=== PATIENT | female | born 1985 | race Caucasian/White ===

== ENCOUNTER 2021-07-04 20:28 | Emergency (ER) | payer OTHER, MEDICAID, SELFPAY ==
[2021-07-04 20:36] VITALS: BP 160/97; PULSE 108; RESP 16; TEMP 37.1; O2SAT 97; BMI 37.2
--- NOTE | 2021-07-04 21:05 | DI.RAD.S_ITS ---
PROCEDURE: XR CHEST 1V INDICATIONS: chest pain TECHNIQUE: One view of the chest was acquired. COMPARISON: None. FINDINGS: Surgical changes and devices: None. Lungs and pleura: Lungs are clear. No pneumothorax. Trace right-sided pleural fluid collection. Mediastinum: Mediastinal contours appear normal. Heart size is normal. Bones and chest wall: No suspicious bony lesions. Overlying soft tissues appear unremarkable. IMPRESSION: Trace right-sided pleural effusion. Dictated by: Christi Sams MD, PhD on 07/04/2021 at 21:49 Approved by: Christi Sams MD, PhD on 07/04/2021 at 21:50
[2021-07-04 21:19] LABS: Add Manual Diff / Slide Review NO; Basophils Absolute Auto 100 /uL (0-100); Basophils Percent Auto 1.1 % (0-2); Eosinophils Absolute Auto 100 /uL (0-450); Eosinophils Percent Auto 0.5 % (2-4); Hematocrit 38.8 % (36-46); Hemoglobin 13.5 g/dL (12.0-16.0); Lymphocytes Absolute Auto 3100 /uL (1100-4500); Lymphocytes Percent Auto 29.2 % (25-40); Mean Corpuscular HGB Conc 34.8 % (30-36); Mean Corpuscular Hemoglobin 33.8 PG (26-34); Mean Corpuscular Volume 97.2 fL (80-100); Monocytes Absolute Auto 600 /uL (0-900); Monocytes Percent Auto 5.9 % (3-14); Neutrophils Absolute Auto 6700 /uL (1500-7000); Neutrophils Percent Auto 63.3 % (50-75); Platelet Count 263 X10^3/uL (150-400); Red Blood Cell Count 3.99 X10^6/uL (4.0-5.2); Red Cell Distribution Width 13.6 % (11.6-14.8); White Blood Cell Count 10.5 X10^3/uL (4.5-11.0)
[2021-07-04 21:24] LABS: Alanine Aminotransferase 348 IU/L (<35); Albumin 4.7 g/dL (3.5-5.0); Albumin Globulin Ratio 1.4 (1.0-2.8); Alkaline Phosphatase 71 U/L (38-126); Aspartate Aminotransferase 183 IU/L (14-36); BUN Creatinine Ratio 16.1 (6-22); Bilirubin Total 0.7 mg/dL (0.2-1.3); Blood Urea Nitrogen 10 mg/dL (7-17); Calcium 9.7 mg/dL (8.4-10.2); Carbon Dioxide 28 mmol/L (22-32); Chloride 99 mmol/L (98-107); Creatine Kinase 282 U/L (30-135); Estimated Glomerular Filt Rate > 60.0 mL/min (>60); Globulin 3.4 g/dL (1.7-4.1); Glucose 149 mg/dL (70-100); HEMOLYSIS 16 (0-50); Lipase 178 U/L (23-300); Magnesium 1.7 mg/dL (1.6-2.3); Potassium 3.1 mmol/L (3.4-5.1); Sodium 134 mmol/L (137-145); Total Protein 8.1 g/dL (6.3-8.2)
[2021-07-04 21:33] LABS: Bacteria Urine Occasional (0-1); Culture Indicated Urine Cult Not Indicated; RBC Urine 1-5/HPF (0-5/HPF); Squamous Epithelial Cell Urine 0-1 /HPF (0-5/HPF); WBC Urine None Seen (0-5/HPF)
[2021-07-04 21:35] VITALS: PULSE 93; O2SAT 99
[2021-07-04 21:36] LABS: Troponin I < 0.012 ng/mL (0.01-0.034)
[2021-07-04 21:39] LABS: CKMB % Relative Index 0.8 % (1.5-5.0); Creatine Kinase MB 2.15 ng/mL (<2.37)
[2021-07-04 22:00] VITALS: PULSE 95; O2SAT 97
[2021-07-04 22:30] VITALS: PULSE 97; O2SAT 97
[2021-07-04 23:00] VITALS: PULSE 99; O2SAT 97
[2021-07-04 23:30] VITALS: PULSE 94; O2SAT 99
[2021-07-05] VITALS: PULSE 92; O2SAT 97
--- NOTE | 2021-07-05 00:10 | ED_ITS ---
HPI - Headache General Chief Complaint: Headache Stated Complaint: SHARP PAIN LEFT SIDE OF HEAD & GROIN DEHYDRATION Time Seen by Provider: 07/04/21 21:46 Source: patient, RN notes reviewed and old records reviewed Mode of arrival: Ambulatory Limitations: no limitations History of Present Illness HPI Narrative: This is a 35-year-old female with reported history of a brain tumor and prior TIA who states that she thinks she is having a stroke today. She has had a headache all day. She has had left arm pain and left groin pain. She has felt foggy and had some trouble with words. She states she is hung over she was drinking yesterday and is dehydrated. She has had some sweaty chills. She occasionally feels shortness of breath. She has had nausea but no vomiting. She denies diarrhea constipation. No urinary symptoms. Patient states she has had tingling of both her fingers and toes on both sides. She denies any weakness of her extremities. She has not any difficulty with gait or movement. Patient states she takes vitamins, a medicine that helps her detox her liver and thyroid medication. She states that she has MTHFR which was the cause of her prior TIA and also causes multiple other issues. She denies prior surgeries she states her brain tumor comes and goes and is not always present on imaging. She denies allergies but states she has adverse responses to medications but does not remember what they are. Denies tobacco, she states she drinks a lot can drink a gal day, she uses THC but denies other illicit. Related Data Home Medications Medication Instructions Recorded Confirmed VIT #49/IRON FUM/FA (MINI 1 PO QDAY #0 06/06/16 TABLET) Allergies Allergy/AdvReac Type Severity Reaction Status Date / Time No Known Drug Allergies Allergy Verified 07/05/21 01:32 Review of Systems Review of Systems ROS Unobtainable: All systems reviewed & are unremarkable except as noted in HPI and below Exam Narrative Exam Narrative: GEN: Well-nourished female, alert and oriented x 3, patient appears to be in mild distress. HEENT: Atraumatic, pupils are equal round reactive to light, no nystagmus, extraocular movements are intact, nares are clear, TMs are clear with no fluid, there is no conjunctival pallor. Throat is clear without any exudates, erythema, tonsillar enlargement or uvular deviation, no facial droop. No dysarthria. HEART: Regular rate and rhythm without murmur, clicks, rubs. Pulses are equal in upper and lower extremities LUNGS:Lungs clear to auscultation, no wheezes, rales, crackles, chest moves symmetrically ABD:bowel sounds normal, soft, non-tender, no guarding, rebound, rigidity, no masses noted, no hepatosplenomegaly :No CVA tenderness MSCL: Non-tender, no muscle atrophy, muscles strength 5/5 upper and lower extremities, full range of motion, normal gait NEURO:CN 2-12 intact, sensation normal, finger nose finger test normal, heel payan test normal, romberg normal SKIN: Patient has a amber complexion, no ecchymosis, petechiae or other changes. Initial Vital Signs Initial Vital Signs: Vital Signs Temperature 98.7 F 07/04/21 20:36 Pulse Rate 108 H 07/04/21 20:36 Respiratory Rate 16 07/04/21 20:36 Blood Pressure 160/97 H 07/04/21 20:36 Pulse Oximetry 97 07/04/21 20:36 Scores GCS [place] coma scale eye opening: Spontaneous [place] coma scale verbal response: Orientated [place] coma scale motor response: Obey commands [place] coma scale total score: 15 NIH Stroke Scale Level of Conciousness: Alert, keenly responsive Ask month/age: Answers both questions correctly. Open/close eyes, close hand: Performs both tasks correctly Best gaze horizontal: Normal Visual olivera: No visual loss Facial palsy: Normal symetrical movement Left arm drift: No drift for full 10 sec Right arm drift: No drift for full 10 sec Left leg drift: No drift for full 5 sec Right leg drift: No drift for full 5 sec Limb ataxia: Absent Sensory on face/arms/legs: Normal, no sensory loss Best language: No aphasia, normal Dysarthria: Normal Extinction or inattention: No abnormality Total NIH Stroke scale score: 0 Course Orders Ordered: ED Orders 07/04/21 21:05 XR chest 1V Stat EKG-12 Lead Stat 07/05/21 00:16 Urine Drug Screen, Rapid Stat 07/05/21 00:27 CT angio head and neck Stat CT head/brain wo con Stat Discontinued Medications Sodium Chloride (Normal Saline 0.9%) 1,000 mls @ 1,000 mls/hr IV BOLUS ONE Stop: 07/05/21 01:26 Last Infusion: 07/05/21 01:52 Dose: 0 mls/hr Documented by: ANN MARIE Infusion: 07/05/21 00:40 Dose: 1,000 mls/hr Documented by: ANN MARIE Admin: 07/05/21 00:35 Dose: 1,000 mls/hr Documented by: ABDIAZIZ Ketorolac Tromethamine (Ketorolac 30 Mg/Ml Vial) 30 mg IV NOW ONE Stop: 07/05/21 01:30 Last Admin: 07/05/21 01:36 Dose: 30 mg Documented by: ANN MARIE Reevaluation(s) Reevaluation #1: Patient is feeling much better. We reviewed her labs and imaging today. Patient's exam findings and review of her symptoms are not consistent stroke we did not find any masses or lesions on her imaging today. Time: 02:08 Vital Signs Vital signs: Vital Signs - 8 hr 07/04/21 22:00 07/04/21 22:30 07/04/21 23:00 Pulse Rate 95 H 97 H 99 H Blood Pressure Pulse Oximetry 97 97 97 07/04/21 23:30 07/05/21 00:00 07/05/21 00:30 Pulse Rate 94 H 92 H 90 Blood Pressure Pulse Oximetry 99 97 96 07/05/21 01:00 07/05/21 01:30 07/05/21 02:00 Pulse Rate 86 86 83 Blood Pressure Pulse Oximetry 98 99 98 07/05/21 02:11 Pulse Rate 76 Blood Pressure 128/64 Pulse Oximetry 98 MDM - Headache Lab Data Result diagrams: 07/04/21 20:55 07/04/21 20:55 Labs: Lab Results 07/04/21 07/04/21 07/04/21 Range/Units 20:55 20:55 20:55 WBC 10.5 (4.5-11.0) X10^3/uL RBC 3.99 L (4.0-5.2) X10^6/uL Hgb 13.5 (12.0-16.0) g/dL Hct 38.8 (36-46) % MCV 97.2 (80-100) fL MCH 33.8 (26-34) PG MCHC 34.8 (30-36) % RDW 13.6 (11.6-14.8) % Plt Count 263 (150-400) X10^3/uL Neut % (Auto) 63.3 (50-75) % Lymph % (Auto) 29.2 (25-40) % [place] % (Auto) 5.9 (3-14) % Eos % (Auto) 0.5 L (2-4) % Baso % (Auto) 1.1 (0-2) % Neut # (Auto) 6700 (8630-5337) /uL Lymph # (Auto) 3100 (3047-3753) /uL [place] # (Auto) 600 (0-900) /uL Eos # (Auto) 100 (0-450) /uL Baso # (Auto) 100 (0-100) /uL Sodium 134 L (137-145) mmol/L Potassium 3.1 L (3.4-5.1) mmol/L Chloride 99 (98-107) mmol/L Carbon Dioxide 28 (22-32) mmol/L BUN 10 (7-17) mg/dL Creatinine 0.62 (0.52-1.04) mg/dL Estimated GFR > 60.0 (>60) mL/min BUN/Creatinine Ratio 16.1 (6-22) Glucose 149 H (70-100) mg/dL Calcium 9.7 (8.4-10.2) mg/dL Magnesium 1.7 (1.6-2.3) mg/dL Total Bilirubin 0.7 (0.2-1.3) mg/dL AST 183 H (14-36) IU/L ALT 348 H (<35) IU/L Alkaline Phosphatase 71 (38-126) U/L Total Creatine Kinase 282 H (30-135) U/L CK-MB (CK-2) 2.15 (<2.37) ng/mL CK-MB (CK-2) Rel Index 0.8 L (1.5-5.0) % Troponin I < 0.012 (0.01-0.034) ng/mL Total Protein 8.1 (6.3-8.2) g/dL Albumin 4.7 (3.5-5.0) g/dL Globulin 3.4 (1.7-4.1) g/dL Albumin/Globulin Ratio 1.4 (1.0-2.8) Lipase 178 (23-300) U/L Urine RBC 1-5/hpf (0-5/HPF) Urine WBC None seen (0-5/HPF) Ur Squamous Epith Cells 0-1 /hpf (0-5/HPF) Urine Bacteria Occasional (0-1) (None) Ur Culture Indicated? Cult not indicated U Opiates 300ng/mL cut (Negative) Ur Oxycodone Screen (Negative) Urine Methadone Screen (Negative) Ur Barbiturates Screen (Negative) U Tricyclic Antidepress (Negative) Ur Phencyclidine Scrn (Negative) Ur Amphetamines Screen (Negative) U Methamphetamines Scrn (Negative) Ur MDMA Scrn (Ecstasy) (Negative) U Benzodiazepines Scrn (Negative) Urine Cocaine Screen (Negative) U Marijuana (THC) Screen (Negative) 07/04/21 Range/Units 20:55 WBC (4.5-11.0) X10^3/uL RBC (4.0-5.2) X10^6/uL Hgb (12.0-16.0) g/dL Hct (36-46) % MCV (80-100) fL MCH (26-34) PG MCHC (30-36) % RDW (11.6-14.8) % Plt Count (150-400) X10^3/uL Neut % (Auto) (50-75) % Lymph % (Auto) (25-40) % [place] % (Auto) (3-14) % Eos % (Auto) (2-4) % Baso % (Auto) (0-2) % Neut # (Auto) (0396-2445) /uL Lymph # (Auto) (5248-3866) /uL [place] # (Auto) (0-900) /uL Eos # (Auto) (0-450) /uL Baso # (Auto) (0-100) /uL Sodium (137-145) mmol/L Potassium (3.4-5.1) mmol/L Chloride (98-107) mmol/L Carbon Dioxide (22-32) mmol/L BUN (7-17) mg/dL Creatinine (0.52-1.04) mg/dL Estimated GFR (>60) mL/min BUN/Creatinine Ratio (6-22) Glucose (70-100) mg/dL Calcium (8.4-10.2) mg/dL Magnesium (1.6-2.3) mg/dL Total Bilirubin (0.2-1.3) mg/dL AST (14-36) IU/L ALT (<35) IU/L Alkaline Phosphatase (38-126) U/L Total Creatine Kinase (30-135) U/L CK-MB (CK-2) (<2.37) ng/mL CK-MB (CK-2) Rel Index (1.5-5.0) % Troponin I (0.01-0.034) ng/mL Total Protein (6.3-8.2) g/dL Albumin (3.5-5.0) g/dL Globulin (1.7-4.1) g/dL Albumin/Globulin Ratio (1.0-2.8) Lipase (23-300) U/L Urine RBC (0-5/HPF) Urine WBC (0-5/HPF) Ur Squamous Epith Cells (0-5/HPF) Urine Bacteria (None) Ur Culture Indicated? U Opiates 300ng/mL cut Positive H (Negative) Ur Oxycodone Screen Negative (Negative) Urine Methadone Screen Negative (Negative) Ur Barbiturates Screen Negative (Negative) U Tricyclic Antidepress Negative (Negative) Ur Phencyclidine Scrn Negative (Negative) Ur Amphetamines Screen Positive H (Negative) U Methamphetamines Scrn Negative (Negative) Ur MDMA Scrn (Ecstasy) Negative (Negative) U Benzodiazepines Scrn Negative (Negative) Urine Cocaine Screen Negative (Negative) U Marijuana (THC) Screen Positive H (Negative) Point of Care Testing Test Results Negative Urine Dip Bedside Urine Glucose Negative Bedside Urine Bilirubin - Negative Bedside Urine Ketone +/- 5 Urine Specific [employer] 1.020 Bedside Urine Occult Blood ++ Bedside Urine pH 6.0 Bedside Urine Protein +/- 15 Bedside Urine Urobilinogen - Negative Bedside Urine Nitrite - Negative Bedside Urine Leukocytes - Negative Esterase Imaging Data Chest x-ray: Radiologist's Impression: [address] [address] XRay Report Signed Patient: Dali Ko MR#: [id number] : 1985 Acct:[id number] Age/Sex: 35 / F Date of Service: 07/04/21 Loc: ED Accession Number: [id number] ?? Procedure: XR chest 1V Ordering Provider: Iliana Emerson D.O. PROCEDURE:? XR CHEST 1V ? INDICATIONS:? chest pain ? TECHNIQUE:? One view of the chest was acquired.? ? COMPARISON:? None. ? FINDINGS:? ? Surgical changes and devices:? None.? ? Lungs and pleura:? Lungs are clear.? No pneumothorax.? Trace right-sided pleural fluid collection.? ? Mediastinum:? Mediastinal contours appear normal.? Heart size is normal.? ? Bones and chest wall:? No suspicious bony lesions.? Overlying soft tissues appear unremarkable.? ? IMPRESSION:? Trace right-sided pleural effusion.? ? ? Dictated by: Christi Sams MD, PhD on 07/04/2021 at 21:49 ? ? Approved by: Christi Sams MD, PhD on 07/04/2021 at 21:50? CTA - brain/neck: Radiologist's Impression: [place] [address] CT Scan Report Signed Patient: Dali Ko MR#: [id number] : 1985 Acct:[id number] Age/Sex: 35 / F Date of Service: 07/05/21 Loc: ED Accession Number: [id number] ?? Procedure: CT angio head and neck Ordering Provider: Iliana Emerson D.O. PROCEDURE:? CT ANGIO HEAD AND NECK ? INDICATIONS:? headache, pain, states hx of brain tumor ? TECHNIQUE:? After the administration of intravenous contrast, 1 mm thick sections acquired from the aortic arch through the [place].? Post-contrast 4.5 mm thick sections then re-acquired from the foramen magnum to the vertex.? 3-dimensional kykykwy-kxqkviwuj-bkjosfncff (MIP) and/or volume rendering reformats were acquired of the central intracranial vasculature and neck separately. ? COMPARISON:? None. ? FINDINGS:? Image quality:? Excellent.? ? BRAIN:? CSF spaces:? Ventricles are normal in size and shape.? Basal cisterns are patent.? No extra-axial fluid collections.? ? Brain:? No midline shift.? No intracranial bleeds or masses.? Flores-white matter interface appears intact.? ? Skull and face:? Calvarium and facial bones appear intact, without suspicious lesions.? Orbits appear normal.? ? Sinuses:? Sinuses and mastoids are clear.? ? HEAD CT ANGIOGRAPHY:? Anterior circulation:? Intracranial internal carotid arteries are normal in size and flow.? The flow within the paired anterior cerebral arteries is normal and symmetric.? The flow within the middle cerebral arteries is normal and symmetric.? The anterior communicating artery is seen.? No aneurysms are seen.? ? Posterior circulation:? Visualized portions of the vertebral arteries demonstrat e normal caliber, and join to form a normal appearing basilar artery.? Flow within the posterior cerebral arteries is normal and symmetric.? Left posterior cerebral artery has a origin.? No aneurysms are seen. ? Dural sinuses demonstrate normal postcontrast enhancement.? ? ? NECK CT ANGIOGRAPHY:? Carotid system:? The great vessels demonstrate a conventional anatomy as they arise from the aortic arch.? The origins of the common carotid arteries appear patent.? The common carotid arteries demonstrate normal caliber and courses.? The bifurcation regions are both widely patent.? The internal carotid arteries demonstrate normal calibers and courses.? ? Posterior circulation:? The origins of the vertebral arteries both appear widely patent.? The more superior extracranial portions of both vertebral arteries also demonstrate normal courses and calibers.? They join to form a normal appearing basilar artery.? ? Soft tissues:? Visualized neck soft tissues demonstrate no suspicious abnormal ities.? ? Bones:? No suspicious bony lesions.? Visualized cervical spine appears normally aligned.? IMPRESSION:? ? 1. No acute intracranial disease process. ? 2. No large vessel occlusion, vascular stenosis, vascular dissection or aneurysm.? ? Any quantitative measurements of stenosis were performed using NASCET criteria.? ? ? Dictated by: Christi Sams MD, PhD on 07/05/2021 at 1:21 ? ? Approved by: Christi Sams MD, PhD on 07/05/2021 at 1:27?? CT scan - head: Radiologist's Impression: Launch?[address] [address] [address] Scan Report Signed Patient: Dali Ko MR#: [id number] : 1985 Acct:[id number] Age/Sex: 35 / F Date of Service: 07/05/21 Loc: ED Accession Number: [id number] ?? Procedure: CT angio head and neck Ordering Provider: Iliana Emerson D.O. PROCEDURE:? CT ANGIO HEAD AND NECK ? INDICATIONS:? headache, pain, states hx of brain tumor ? TECHNIQUE:? After the administration of intravenous contrast, 1 mm thick sections acquired from the aortic arch through the [place].? Post-contrast 4.5 mm thick sections then re-acquired from the foramen magnum to the vertex.? 3-dimensional piqaljj-xegodrhgz-kvzgcdzjwv (MIP) and/or volume rendering reformats were acquired of the central intracranial vasculature and neck separately. ? COMPARISON:? None. ? FINDINGS:? Image quality:? Excellent.? ? BRAIN:? CSF spaces:? Ventricles are normal in size and shape.? Basal cisterns are patent.? No extra-axial fluid collections.? ? Brain:? No midline shift.? No intracranial bleeds or masses.? Flores-white matter interface appears intact.? ? Skull and face:? Calvarium and facial bones appear intact, without suspicious l esions.? Orbits appear normal.? ? Sinuses:? Sinuses and mastoids are clear.? ? HEAD CT ANGIOGRAPHY:? Anterior circulation:? Intracranial internal carotid arteries are normal in size and flow.? The flow within the paired anterior cerebral arteries is normal and symmetric.? The flow within the middle cerebral arteries is normal and symmetric.? The anterior communicating artery is seen.? No aneurysms are seen.? ? Posterior circulation:? Visualized portions of the vertebral arteries demonstrate normal caliber, and join to form a normal appearing basilar artery.? Flow within the posterior cerebral arteries is normal and symmetric.? Left posterior cerebral artery has a origin.? No aneurysms are seen. ? Dural sinuses demonstrate normal postcontrast enhancement.? ? ? NECK CT ANGIOGRAPHY:? Carotid system:? The great vessels demonstrate a conventional anatomy as they arise from the aortic arch.? The origins of the common carotid arteries appear patent.? The common carotid arteries demonstrate normal caliber and courses.? The bifurcation regions are both widely patent.? The internal carotid arteries demonstrate normal calibers and courses.? ? Posterior circulation:? The origins of the vertebral arteries both appear widely patent.? The more superior extracranial portions of both vertebral arteries also demonstrate normal courses and calibers.? They join to form a normal appearing basilar artery.? ? Soft tissues:? Visualized neck soft tissues demonstrate no suspicious abnormalities.? ? Bones:? No suspicious bony lesions.? Visualized cervical spine appears normally aligned.? IMPRESSION:? ? 1. No acute intracranial disease process. ? 2. No large vessel occlusion, vascular stenosis, vascular dissection or aneurysm.? ? Any quantitative measurements of stenosis were performed using NASCET criteria.? ? ? Dictated by: Christi Sams MD, PhD on 07/05/2021 at 1:21 ? ? Approved by: Christi Sams MD, PhD on 07/05/2021 at 1:27?? ECG Data Attestation: I personally reviewed and interpreted this ECG as follows: Prior ECG tracings: not available for review Interpretation: Normal sinus rhythm. Incomplete right bundle-branch. Rate 88, P are 156, QRS of 90 QTC [address] No acute [address] elevation depression noted. No priors available for comparison. MDM Narrative Medical decision making narrative: 35-year-old female comes with complaint of stroke but complains of headache, and pain in her shoulder groin on the left. She has had numbness and tingling in all her fingers and toes which has gone. Patient describes brain tumors and that come and go. Patient has had 1 prior visit in 2016 where she was seen by the DCR for paranoid schizophrenia. She has not had any additional visits since then. Patient's head CT and CTAngio are negative. Patient has slightly low sodium and potassium at 3.1, slightly elevated AST ALT which patient states she does drink quite heavily. She positive for opiates, amphetamines and marijuana on her UDS. Urine is negative with no other acute changes. Patient was given fluids and Toradol she states she is quite hung over but was not nauseated currently so antinausea medication was deferred. Patient felt improved on recheck. Return precautions discussed. Patient feels comfortable with this plan. She states she will follow-up with her primary care regarding her sodium and potassium but was encouraged Discharge Plan Departure Patient Disposition: Home Clinical Impression: Headache Activity Restrictions/Additional Instructions: Your labs show a slightly low potassium and sodium but otherwise reassuring labs. Your liver enzymes are slightly elevated this is likely secondary to alcohol as you stated. Your imaging today is reassuring. Follow-up with your primary care provider. Please return for new or changing headaches, new vision changes, difficulty with speech, weakness, loss of sensation or inability to use her extremities, persistent vomiting, black or bloody stools or other new or concerning symptoms. Prescriptions: No Action VIT #49/IRON FUM/FA (MINI TABLET) 1 PO QDAY Qty: 0 0RF
--- NOTE | 2021-07-05 00:27 | DI.CT.S_ITS ---
PROCEDURE: CT ANGIO HEAD AND NECK INDICATIONS: headache, pain, states hx of brain tumor TECHNIQUE: After the administration of intravenous contrast, 1 mm thick sections acquired from the aortic arch through the [place] of [place]. Post-contrast 4.5 mm thick sections then re-acquired from the foramen magnum to the vertex. 3-dimensional fnaibpt-tlwfvfdxl-jkqhqwftrd (MIP) and/or volume rendering reformats were acquired of the central intracranial vasculature and neck separately. COMPARISON: None. FINDINGS: Image quality: Excellent. BRAIN: CSF spaces: Ventricles are normal in size and shape. Basal cisterns are patent. No extra-axial fluid collections. Brain: No midline shift. No intracranial bleeds or masses. Flores-white matter interface appears intact. Skull and face: Calvarium and facial bones appear intact, without suspicious lesions. Orbits appear normal. Sinuses: Sinuses and mastoids are clear. HEAD CT ANGIOGRAPHY: Anterior circulation: Intracranial internal carotid arteries are normal in size and flow. The flow within the paired anterior cerebral arteries is normal and symmetric. The flow within the middle cerebral arteries is normal and symmetric. The anterior communicating artery is seen. No aneurysms are seen. Posterior circulation: Visualized portions of the vertebral arteries demonstrate normal caliber, and join to form a normal appearing basilar artery. Flow within the posterior cerebral arteries is normal and symmetric. Left posterior cerebral artery has a origin. No aneurysms are seen. Dural sinuses demonstrate normal postcontrast enhancement. NECK CT ANGIOGRAPHY: Carotid system: The great vessels demonstrate a conventional anatomy as they arise from the aortic arch. The origins of the common carotid arteries appear patent. The common carotid arteries demonstrate normal caliber and courses. The bifurcation regions are both widely patent. The internal carotid arteries demonstrate normal calibers and courses. Posterior circulation: The origins of the vertebral arteries both appear widely patent. The more superior extracranial portions of both vertebral arteries also demonstrate normal courses and calibers. They join to form a normal appearing basilar artery. Soft tissues: Visualized neck soft tissues demonstrate no suspicious abnormalities. Bones: No suspicious bony lesions. Visualized cervical spine appears normally aligned. IMPRESSION: 1. No acute intracranial disease process. 2. No large vessel occlusion, vascular stenosis, vascular dissection or aneurysm. Any quantitative measurements of stenosis were performed using NASCET criteria. Dictated by: Christi Sams MD, PhD on 07/05/2021 at 1:21 Approved by: Christi Sams MD, PhD on 07/05/2021 at 1:27
--- NOTE | 2021-07-05 00:27 | DI.CT.S_ITS ---
PROCEDURE: CT HEAD/BRAIN WO CON INDICATIONS: headache, pain, states hx TECHNIQUE: Noncontrast 4.5 mm thick angled axial sections acquired from the foramen magnum to the vertex, with coronal and sagittal reformats. For radiation dose reduction, the following was used: automated exposure control, adjustment of mA and/or kV according to patient size. COMPARISON: [facility], CT, HEAD WITHOUT CONTRAST, 11/09/2015, 13:24. FINDINGS: Image quality: Excellent. CSF spaces: Basal cisterns are patent. No extra-axial fluid collections. Ventricles are normal in size and shape. Brain: No midline shift. No intracranial masses or hemorrhage. Flores-white matter interface is normal. Skull and face: Calvarium and visualized facial bones are intact, without suspicious lesions. Sinuses: Visualized sinuses and mastoids are clear. IMPRESSION: No acute intracranial disease process. Dictated by: Christi Sams MD, PhD on 07/05/2021 at 1:19 Approved by: Christi Sams MD, PhD on 07/05/2021 at 1:21
[2021-07-05 00:30] VITALS: PULSE 90; O2SAT 96
[2021-07-05] MEDS: SODIUM CHLORIDE 0.9% 1,000 ML 1000 ML IV (00:35)
[2021-07-05 01:00] VITALS: PULSE 86; O2SAT 98
[2021-07-05 01:02] LABS: Ur Creatinine 50 (Normal); Ur Specific Gravity 1.025 (Normal); Urine Tetrahydrocannabinol Positive (Negative); Urine pH 5 (Normal)
[2021-07-05 01:03] LABS: UR Morphine/Opiate cutoff 300 Positive (Negative); Urine Amphetamines Positive (Negative); Urine Barbiturates Negative (Negative); Urine Benzodiazepines Negative (Negative); Urine Cocaine Negative (Negative); Urine MDMA Negative (Negative); Urine Methadone Negative (Negative); Urine Methamphetamines Negative (Negative); Urine Oxycodone Negative (Negative); Urine Phencyclidine Negative (Negative); Urine Tricyclic Antidepressant Negative (Negative)
[2021-07-05 01:30] VITALS: PULSE 86; O2SAT 99
[2021-07-05] MEDS: KETOROLAC 30 MG/ML VIAL IV (01:36)
[2021-07-05 02:00] VITALS: PULSE 83; O2SAT 98
[2021-07-05 02:11] VITALS: BP 128/64; PULSE 76; O2SAT 98
== END 2021-07-05 02:17 | disposition home or self-care (01) ==
PROVIDERS: Emergency Provider Emergency Medicine
DX: R51.9 Headache, unspecified (principal)
CPT/HCPCS: 36415; 70450; 70496; 70498; 71045; 80053; 80305; 81003; 81015; 81025; 82550; 82553; 83690; 83735; 84484; 85025; 93005; 93010; 96361; 96374; 99284; J1885; Q9967

== ENCOUNTER → 2022-03-30 11:40 | Outpatient (CLI) | payer OTHER, MEDICAID, SELFPAY ==
[2022-03-30 12:53] LABS: Influenza A - CEPHEID Flu A NEGATIVE (NEGATIVE); Influenza B - CEPHEID Flu B NEGATIVE (NEGATIVE); Respiratory Syncytial Virus Negative (Negative)
[2022-03-30 12:54] LABS: COVID-19 CEPHEID 4-PLEX PCR Negative (Negative)
== END ==
PROVIDERS: Visit Provider Nurse Practitioner Family
DX: J02.9 Acute pharyngitis, unspecified (principal); Z20.822 Contact with and (suspected) exposure to COVID-19
CPT/HCPCS: 0241U; 87070; 87147

== ENCOUNTER 2022-04-18 16:36 | Emergency (ER) | payer OTHER, MEDICAID, SELFPAY | END 2022-04-18 16:52 | disposition left against medical advice (07) | PROVIDERS: Emergency Provider Emergency Medicine; PCP Family Medicine ==

== ENCOUNTER 2022-04-25 09:26 | Emergency (ER) | payer OTHER, MEDICAID, SELFPAY ==
--- NOTE | 2022-04-25 09:32 | DI.RAD.S_ITS ---
PROCEDURE: XR CHEST 1V INDICATIONS: chest pain TECHNIQUE: One view of the chest was acquired. COMPARISON: [facility], CR, XR CHEST 1V, 07/04/2021, 21:34. FINDINGS: Surgical changes and devices: None. Lungs and pleura: Lungs are clear. No pneumothorax. Persistent blunting of the right costophrenic angle. Mediastinum: Mediastinal contours appear normal. Heart size is normal. Bones and chest wall: No suspicious bony lesions. Overlying soft tissues appear unremarkable. IMPRESSION: Persistent blunting of the right costophrenic angle which may represent a small right pleural effusion versus pleural thickening/scarring. Otherwise, no acute cardiopulmonary abnormalities. No focal airspace disease. Dictated by: Casey Ohara M.D. on 04/25/2022 at 10:00 Approved by: Casey Ohara M.D. on 04/25/2022 at 10:01
[2022-04-25 09:33] VITALS: BP 158/103; PULSE 83; RESP 19; TEMP 36.8; O2SAT 98; BMI 28.8
[2022-04-25 10:00] LABS: Add Manual Diff / Slide Review NO; Basophils Absolute Auto 0 /uL (0-100); Basophils Percent Auto 0.3 % (0-2); Eosinophils Absolute Auto 200 /uL (0-450); Eosinophils Percent Auto 4.1 % (2-4); Hematocrit 37.4 % (36-46); Hemoglobin 12.8 g/dL (12.0-16.0); Lymphocytes Absolute Auto 1700 /uL (1100-4500); Lymphocytes Percent Auto 29.3 % (25-40); Mean Corpuscular HGB Conc 34.1 % (30-36); Mean Corpuscular Hemoglobin 34.3 PG (26-34); Mean Corpuscular Volume 100.5 fL (80-100); Monocytes Absolute Auto 600 /uL (0-900); Monocytes Percent Auto 10.9 % (3-14); Neutrophils Absolute Auto 3100 /uL (1500-7000); Neutrophils Percent Auto 55.4 % (50-75); Platelet Count 224 X10^3/uL (150-400); Red Blood Cell Count 3.73 X10^6/uL (4.0-5.2); Red Cell Distribution Width 13.8 % (11.6-14.8); White Blood Cell Count 5.7 X10^3/uL (4.5-11.0)
[2022-04-25 10:06] LABS: Prothrombin Time 11.5 SECONDS (10.1-12.7)
[2022-04-25 10:08] LABS: PTT Partial Thromboplastin Tim 28 SECONDS (26-36)
[2022-04-25 10:10] LABS: Alanine Aminotransferase 368 IU/L (<35); Albumin 4.1 g/dL (3.5-5.0); Albumin Globulin Ratio 1.2 (1.0-2.8); Alkaline Phosphatase 111 U/L (38-126); Aspartate Aminotransferase 356 IU/L (14-36); BUN Creatinine Ratio 19.6 (6-22); Bilirubin Total 0.5 mg/dL (0.2-1.3); Blood Urea Nitrogen 11 mg/dL (7-17); Calcium 8.7 mg/dL (8.4-10.2); Carbon Dioxide 25 mmol/L (22-32); Chloride 101 mmol/L (98-107); Creatine Kinase 199 U/L (30-135); Estimated Glomerular Filt Rate > 60 mL/min (>60); Globulin 3.5 g/dL (1.7-4.1); Glucose 131 mg/dL (70-100); HEMOLYSIS < 15 (0-50); Lipase 381 U/L (23-300); Magnesium 1.5 mg/dL (1.6-2.3); Potassium 3.4 mmol/L (3.4-5.1); Sodium 135 mmol/L (137-145); Total Protein 7.6 g/dL (6.3-8.2)
[2022-04-25 10:22] LABS: Troponin I < 0.012 ng/mL (0.01-0.034)
--- NOTE | 2022-04-25 10:36 | ED.CHESTPAIN ---
HPI - Chest Pain General Chief Complaint: Chest Pain Stated Complaint: thinks shes having a heart attack Time Seen by Provider: 04/25/22 10:36 Source: patient Mode of arrival: Family Vehicle Limitations: no limitations History of Present Illness HPI narrative: 36-year-old woman with a history of genetic MTHFR mutation, TIA the age of 25 felt to be secondary to that who was concerned that she is having heart attack type symptoms. She notes over the last couple of weeks she is been having intermittent left-sided chest pain right-sided groin pain left headache and left arm pain all of which she assumes is heart related. This morning she woke up short of breath with substernal chest pain that she describes as radiating to her left shoulder associated with a fast heart rate and feeling lightheaded. She does note that she drinks 4-5 shots of alcohol every night and is aware of elevated liver function tests. She denies nausea, vomiting, diarrhea. Related Data Home Medications Medication Instructions Recorded Confirmed VIT #49/IRON FUM/FA (MINI 1 PO QDAY ##0 06/06/16 TABLET) Previous Rx's Medication Instructions Recorded albuterol sulfate 90 mcg/actuation 2 puff inhalation Q6H PRN 03/30/22 aerosol inhaler shortness of breath or wheezing #6.7 grams benzonatate 100 mg capsule 100 mg PO BID PRN cough #20 caps 03/30/22 inhalational spacing device #1 ea 03/30/22 (Aerochamber MV spacer) amoxicillin 500 mg capsule 500 mg PO BID #20 caps 04/01/22 Allergies Allergy/AdvReac Type Severity Reaction Status Date / Time No Known Drug Allergies Allergy Verified 07/05/21 01:32 Review of Systems Review of Systems Narrative: Pertinent positive and negative findings as per HPI Patient History Medical History (Updated 04/25/22 @ 11:09 by Heather Mendoza MD) MTHFR gene mutation TIA (transient ischemic attack) Social History Smoking Status: Current every day smoker Smoking Status: Current every day smoker tobacco type: cigarettes alcohol intake frequency: 3 or more drinks per day Alcohol type: hard liquor Exam Initial Vital Signs Initial Vital Signs: Vital Signs Temperature 98.3 F 04/25/22 09:33 Pulse Rate 83 04/25/22 09:33 Respiratory Rate 19 04/25/22 09:33 Blood Pressure 158/103 H 04/25/22 09:33 Pulse Oximetry 98 04/25/22 09:33 Oxygen Delivery Method 04/25/22 09:33 General: Flat affect but in no acute distress. Able to give a complete and somewhat tangential history. Well-nourished well-developed HEENT: Moist mucous membranes, normal sclera with reactive pupils, facial puffiness and puffiness around her eyes Respiratory: Lungs are clear to auscultation, no wheezing no rales no rhonchi. Full and symmetrical air movement Cardiac: Regular rate and rhythm no murmurs no bruits Chest: No reproducible chest pain with palpation Abdomen: Soft, nontender, good bowel tones, no flank pain Skin: Warm and dry, multiple telangiectasias Neurologic: Grossly neurologically intact with no obvious asymmetries or abnormalities Extremities: No trauma, well perfused Psych: Cooperative, appropriate insight and affect Course Orders Ordered: ED Orders 04/25/22 09:32 XR chest 1V Stat EKG-12 Lead Stat 04/25/22 09:48 Complete Blood Count AUTO DIFF Stat Comprehensive Metabolic Panel Stat Lipase Stat Magnesium Stat Partial Thromboplastin Time Stat Prothrombin Time INR Stat Troponin & CK Cardiac Panel Stat 04/25/22 10:35 COVID19 -Nasal RAPID/Pre-Proc Stat Discontinued Medications Aspirin (Aspirin 81 Mg Chew Tab) 324 mg PO NOW ONE Stop: 04/25/22 09:33 Last Admin: 04/25/22 10:51 Dose: Not Given Documented By: ADE Vital Signs Vital signs: Vital Signs - 8 hr 04/25/22 09:33 Temperature 98.3 F Pulse Rate 83 Respiratory Rate 19 Blood Pressure 158/103 H Pulse Oximetry 98 Oxygen Delivery Method Room Air MDM - Chest Pain Lab Data Result diagrams: 04/25/22 09:48 04/25/22 09:48 Labs: Lab Results 04/25/22 04/25/22 04/25/22 Range/Units 09:48 09:48 09:48 WBC 5.7 (4.5-11.0) X10^3/uL RBC 3.73 L (4.0-5.2) X10^6/uL Hgb 12.8 (12.0-16.0) g/dL Hct 37.4 (36-46) % MCV 100.5 H (80-100) fL MCH 34.3 H (26-34) PG MCHC 34.1 (30-36) % RDW 13.8 (11.6-14.8) % Plt Count 224 (150-400) X10^3/uL Neut % (Auto) 55.4 (50-75) % Lymph % (Auto) 29.3 (25-40) % [place] % (Auto) 10.9 (3-14) % Eos % (Auto) 4.1 H (2-4) % Baso % (Auto) 0.3 (0-2) % Neut # (Auto) 3100 (4741-3832) /uL Lymph # (Auto) 1700 (2639-0591) /uL [place] # (Auto) 600 (0-900) /uL Eos # (Auto) 200 (0-450) /uL Baso # (Auto) 0 (0-100) /uL PT 11.5 (10.1-12.7) SECONDS INR 1.0 (0.9-1.3) APTT 28 (26-36) SECONDS Sodium 135 L (137-145) mmol/L Potassium 3.4 (3.4-5.1) mmol/L Chloride 101 (98-107) mmol/L Carbon Dioxide 25 (22-32) mmol/L BUN 11 (7-17) mg/dL Creatinine 0.56 (0.52-1.04) mg/dL Estimated GFR > 60 (>60) mL/min BUN/Creatinine Ratio 19.6 (6-22) Glucose 131 H (70-100) mg/dL Calcium 8.7 (8.4-10.2) mg/dL Magnesium 1.5 L (1.6-2.3) mg/dL Total Bilirubin 0.5 (0.2-1.3) mg/dL AST 356 H (14-36) IU/L ALT 368 H (<35) IU/L Alkaline Phosphatase 111 (38-126) U/L Total Creatine Kinase 199 H (30-135) U/L CK-MB (CK-2) 1.89 (<2.37) ng/mL CK-MB (CK-2) Rel Index 0.9 L (1.5-5.0) % Troponin I < 0.012 (0.01-0.034) ng/mL Total Protein 7.6 (6.3-8.2) g/dL Albumin 4.1 (3.5-5.0) g/dL Globulin 3.5 (1.7-4.1) g/dL Albumin/Globulin Ratio 1.2 (1.0-2.8) Lipase 381 H (23-300) U/L Urine Dip Bedside Urine Glucose Negative Bedside Urine Bilirubin - Negative Bedside Urine Ketone - Negative Urine Specific [place] 1.010 Bedside Urine Occult Blood +/- Bedside Urine pH 7.0 Bedside Urine Protein - Negative Bedside Urine Urobilinogen - Negative Bedside Urine Nitrite - Negative Bedside Urine Leukocytes - Negative Esterase Imaging Data Chest x-ray: Radiologist's Impression: FINDINGS:? ? Surgical changes and devices:? None.? ? Lungs and pleura:? Lungs are clear.? No pneumothorax.? Persistent blunting of the right costophrenic angle. ? Mediastinum:? Mediastinal contours appear normal.? Heart size is normal.? ? Bones and chest wall:? No suspicious bony lesions.? Overlying soft tissues appear unremarkable.? ? IMPRESSION:? Persistent blunting of the right costophrenic angle which may represent a small right pleural effusion versus pleural thickening/scarring.? Otherwise, no acute cardiopulmonary abnormalities.? No focal airspace disease. ? ? Dictated by: Casey Ohara M.D. on 04/25/2022 at 10:00 ? ? ECG Data Interpretation: Sinus rhythm is 68 Mild sinus arrhythmia No acute ischemia EKGs independently reviewed by me MDM Narrative Medical decision making narrative: 36-year-old woman was some rather fixed delusional thinking about what ?heart attacky symptoms might be. The somatic complaints that she is attributing to feeling that she is about to have a heart attack are not entirely consistent with that diagnosis. 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 I suspect that some of her symptoms are related to alcoholic gastritis and pancreatic irritation. She is not currently vomiting, not currently having any reproducible abdominal or chest pain. She is not orthostatic, blood pressure is coming down nicely. Oxygen saturations are 99% on room air. Differential, acute coronary syndrome, pneumonia, pneumothorax, delusional thinking, gastritis, pancreatitis, side effects of alcohol use disorder Labs as listed above as well as x-ray are all independently reviewed and unremarkable. Patient is re-examined and she is reassured that there are no life-threatening etiologies identified to explain her symptoms. I did recommend that she follow-up with her primary care physician regarding her ongoing continued complaints. She is safe for discharge home Discharge Plan Departure Patient Disposition: Home Clinical Impression: Atypical chest pain Instructions: DI for Atypical Chest Pain Activity Restrictions/Additional Instructions: Thank you for coming in today Fortunately, I did not find any life-threatening explanations for the pain that you are experiencing. Specifically there is no evidence of heart attack, enlarged heart, pneumonia, collapsed lungs. Your liver is inflamed from your drinking as is your pancreas. These can often cause pain right in the center of your body underneath her breast bone. Your alcohol is currently affecting your health and I would recommend stopping drinking completely. You do need follow-up with your primary care doctor If you find that you are worse your welcome to return to the ER Prescriptions: No Action benzonatate 100 mg capsule 100 mg PO BID PRN (Reason: cough) Qty: 20 0RF (DME) Aerochamber MV Spacer See Rx Instructions .ROUTE .MEDSUPPLY Qty: 1 0RF Rx Instructions: As directed albuterol sulfate 90 mcg/actuation HFA aerosol inhaler 2 puff inhalation Q6H PRN (Reason: shortness of breath or wheezing) Qty: 6.7 0RF VIT #49/IRON FUM/FA (MINI TABLET) 1 PO QDAY Qty: 0 amoxicillin 500 mg capsule 500 mg PO BID Qty: 20 0RF Referrals: Shannan Vigil MD [Primary Care Provider] -
[2022-04-25 10:37] LABS: CKMB % Relative Index 0.9 % (1.5-5.0); Creatine Kinase MB 1.89 ng/mL (<2.37)
--- NOTE | 2022-04-25 10:50 | PC.NURSE ---
Pt reports woke up at 0800. [place] palpliatations then felt like my heart stopped completely, so I got up and started jumping around to get it going again. Took her PRN Metoprolol 25mg for palpitations. Denies chest pain at time of assessment. Intermittent dizziness.
[2022-04-25 11:14] LABS: COVID19 -Nasal RAPID Negative (Negative)
[2022-04-25 11:33] VITALS: BP 133/89; PULSE 61; RESP 18; O2SAT 99
== END 2022-04-25 11:35 | disposition home or self-care (01) ==
PROVIDERS: Emergency Provider Emergency Medicine; PCP Family Medicine
DX: R07.89 Other chest pain (principal); Z20.822 Contact with and (suspected) exposure to COVID-19
CPT/HCPCS: 36415; 71045; 80053; 81003; 82550; 82553; 83690; 83735; 84484; 85025; 85610; 85730; 87635; 93005; 99283; 99284; C9803

== ENCOUNTER 2023-08-10 08:18 | Emergency (ER) | payer OTHER, MEDICAID, SELFPAY ==
[2023-08-10] VITALS (14 sets, daily range): BP systolic 128–169; BP diastolic 74–104; PULSE 80–108; RESP 23; TEMP 36.8; O2SAT 94–97; BMI 31.7
[2023-08-10] MEDS: KETOROLAC 30 MG/ML VIAL 15 MG IV (09:13)
[2023-08-10 09:23] LABS: Add Manual Diff / Slide Review NO; Basophils Absolute Auto 100 /uL (0-100); Basophils Percent Auto 1.2 % (0-2); Eosinophils Absolute Auto 200 /uL (0-450); Eosinophils Percent Auto 1.9 % (2-4); Hematocrit 38.1 % (36-46); Hemoglobin 13.2 g/dL (12.0-16.0); Lymphocytes Absolute Auto 1700 /uL (1100-4500); Lymphocytes Percent Auto 16.4 % (25-40); Mean Corpuscular HGB Conc 34.5 % (30-36); Mean Corpuscular Hemoglobin 37.1 PG (26-34); Mean Corpuscular Volume 107.3 fL (80-100); Monocytes Absolute Auto 900 /uL (0-900); Monocytes Percent Auto 8.4 % (3-14); Neutrophils Absolute Auto 7700 /uL (1500-7000); Neutrophils Percent Auto 72.1 % (50-75); Platelet Count 210 X10^3/uL (150-400); Red Blood Cell Count 3.55 X10^6/uL (4.0-5.2); Red Cell Distribution Width 13.7 % (11.6-14.8); White Blood Cell Count 10.6 X10^3/uL (4.5-11.0)
[2023-08-10 09:29] LABS: Alanine Aminotransferase 88 IU/L (<35); Albumin 4.6 g/dL (3.5-5.0); Albumin Globulin Ratio 1.3 (1.0-2.8); Alkaline Phosphatase 94 U/L (38-126); Aspartate Aminotransferase 109 IU/L (14-36); BUN Creatinine Ratio 23.6 (6-22); Bilirubin Total 1.2 mg/dL (0.2-1.3); Blood Urea Nitrogen 13 mg/dL (7-17); Calcium 9.4 mg/dL (8.4-10.2); Carbon Dioxide 26 mmol/L (22-32); Chloride 104 mmol/L (98-107); Estimated Glomerular Filt Rate > 60 mL/min (>60); Globulin 3.6 g/dL (1.7-4.1); Glucose 124 mg/dL (70-100); HEMOLYSIS 28 (0-50); Lipase 461 U/L (23-300); Sodium 137 mmol/L (137-145); Total Protein 8.2 g/dL (6.3-8.2)
[2023-08-10] MEDS: ONDANSETRON 4 MG/2 ML INJ IV (09:39)
--- NOTE | 2023-08-10 09:46 | ED.ABDPAIN ---
HPI - Abdominal Pain General Chief Complaint: Urogenital-Female Stated Complaint: PER PT KIDNEY PAIN, VOMITING Time Seen by Provider: 08/10/23 09:12 Source: patient Mode of arrival: Ambulatory History of Present Illness HPI narrative: Patient 38-year-old female history of TIA at the age of 25 with MTHFR gene, presenting today with back pain and urinary frequency and urgency. She reports that few days ago she helped her parents move things she did a lot of labor intensive work afterwards she just back pain was bilateral but now it seems more to the left and radiating to her abdomen. No real nausea or vomiting. She also noticed it some painful frequent urination she started taking azo which has helped some of the symptoms. No fever or chills. He was just given Toradol for pain which seemed to help. Related Data Home Medications Medication Instructions Recorded Confirmed VIT #49/IRON FUM/FA (MINI 1 PO QDAY ##0 06/06/16 TABLET) Previous Rx's Medication Instructions Recorded albuterol sulfate 90 mcg/actuation 2 puff inhalation Q6H PRN 03/30/22 aerosol inhaler shortness of breath or wheezing #6.7 grams benzonatate 100 mg capsule 100 mg PO BID PRN cough #20 caps 03/30/22 inhalational spacing device #1 ea 03/30/22 (Aerochamber MV spacer) amoxicillin 500 mg capsule 500 mg PO BID #20 caps 04/01/22 fluticasone propionate 50 1 spray intranasal Q12H #16 grams 01/05/23 mcg/actuation nasal spray,suspension (Flonase Allergy Relief) cephalexin 500 mg capsule 500 mg PO BID 7 days #14 caps 08/10/23 Allergies Allergy/AdvReac Type Severity Reaction Status Date / Time No Known Drug Allergies Allergy Verified 08/10/23 08:39 Patient History Medical History TIA (transient ischemic attack) MTHFR gene mutation Social History Smoking Status: Current every day smoker Smoking Status: Current every day smoker tobacco type: cigarettes alcohol intake frequency: 3 or more drinks per day Alcohol type: hard liquor Exam Initial Vital Signs Initial Vital Signs: Vital Signs Pulse Rate 108 H 08/10/23 08:27 Pulse Oximetry 97 08/10/23 08:27 GENERAL: Well-appearing 38-year-old female HEENT: Head atraumatic,EOMI, pupils reactive, face symmetric, moist mucous membranes CARDIOVASCULAR: Regular rate and rhythm without murmurs, rubs or gallops. RESPIRATORY: Breath sounds equal bilaterally, no wheezes rales or rhonchi. ABDOMEN: Soft, nontender. Normoactive bowel sounds all 4 quadrants. No guarding or rebound. : Mild left CVA tenderness EXTREMITIES: Normal range of motion, no clubbing or edema. Neurovascularly intact NEUROLOGICAL: Alert and oriented x4. SKIN: Warm, dry, no laceration, no petechiae, no rashes or lesions. Course Orders Ordered: Discontinued Medications Acetaminophen (Acetaminophen 325 Mg Tablet) 975 mg PO NOW ONE Stop: 08/10/23 12:21 Last Admin: 08/10/23 12:40 Dose: 975 mg Documented By: ODETTE Ketorolac Tromethamine (Ketorolac 30 Mg/Ml Vial) 15 mg IV NOW ONE Stop: 08/10/23 09:08 Last Admin: 08/10/23 09:13 Dose: 15 mg Documented By: MARY ANNE Ondansetron HCl (Ondansetron 4 Mg/2 Ml Inj) 4 mg IV Q2HR PRN PRN Reason: Nausea And Vomiting Last Admin: 08/10/23 09:39 Dose: 4 mg Documented By: MARY ANNE Vital Signs Vital signs: Vital Signs - 8 hr 08/10/23 11:24 08/10/23 11:24 08/10/23 11:30 Pulse Rate 87 Blood Pressure 128/74 143/90 H Pulse Oximetry 97 08/10/23 11:30 08/10/23 12:00 08/10/23 12:00 Pulse Rate 86 80 Blood Pressure 144/87 H Pulse Oximetry 97 96 08/10/23 12:30 08/10/23 12:30 Pulse Rate 86 Blood Pressure 142/86 H Pulse Oximetry 96 MDM - Abdominal Pain Lab Data 08/10/23 09:04 08/10/23 09:04 Labs: Lab Results 08/10/23 08/10/23 Range/Units 09:04 09:44 WBC 10.6 (4.5-11.0) X10^3/uL RBC 3.55 L (4.0-5.2) X10^6/uL Hgb 13.2 (12.0-16.0) g/dL Hct 38.1 (36-46) % MCV 107.3 H (80-100) fL MCH 37.1 H (26-34) PG MCHC 34.5 (30-36) % RDW 13.7 (11.6-14.8) % Plt Count 210 (150-400) X10^3/uL Neut % (Auto) 72.1 (50-75) % Lymph % (Auto) 16.4 L (25-40) % [place] % (Auto) 8.4 (3-14) % Eos % (Auto) 1.9 L (2-4) % Baso % (Auto) 1.2 (0-2) % Neut # (Auto) 7700 H (7022-6675) /uL Lymph # (Auto) 1700 (2953-4898) /uL [place] # (Auto) 900 (0-900) /uL Eos # (Auto) 200 (0-450) /uL Baso # (Auto) 100 (0-100) /uL Sodium 137 (137-145) mmol/L Potassium 4.0 (3.4-5.1) mmol/L Chloride 104 (98-107) mmol/L Carbon Dioxide 26 (22-32) mmol/L BUN 13 (7-17) mg/dL Creatinine 0.55 (0.52-1.04) mg/dL Estimated GFR > 60 (>60) mL/min BUN/Creatinine Ratio 23.6 H (6-22) Glucose 124 H (70-100) mg/dL Calcium 9.4 (8.4-10.2) mg/dL Total Bilirubin 1.2 (0.2-1.3) mg/dL AST 109 H (14-36) IU/L ALT 88 H (<35) IU/L Alkaline Phosphatase 94 (38-126) U/L Total Protein 8.2 (6.3-8.2) g/dL Albumin 4.6 (3.5-5.0) g/dL Globulin 3.6 (1.7-4.1) g/dL Albumin/Globulin Ratio 1.3 (1.0-2.8) Lipase 461 H (23-300) U/L Urine Color [place] Urine Appearance Cloudy Urine pH TNP Ur Specific [place] TNP Urine Protein TNP Urine Glucose (UA) TNP Urine Ketones TNP Urine Occult Blood TNP Urine Nitrate TNP Urine Bilirubin TNP Ur Bilirubin Confirm Positive H (Negative) Urine Urobilinogen TNP Ur Leukocyte Esterase TNP Urine RBC 1-5/hpf (0-5/HPF) Urine WBC 10-30/hpf H (0-5/HPF) Ur Squamous Epith Cells None seen (0-5/HPF) Urine Bacteria Moderate (10-30) H (None) Ur Culture Indicated? Specimen cultured Vol Urine Centrifuged 10ml (spun) Urine Test Negative (Negative) Imaging Data CT scan - abdomen/pelvis: Radiologist's Impression: PROCEDURE: CT ABDOMEN PELVIS W CON INDICATIONS: left flank pain TECHNIQUE: After the administration of intravenous contrast, axial sections acquired from the lung bases to the pubic symphysis. Coronal and sagittal reformats were performed. For radiation dose reduction, the following was used: automated exposure control, adjustment of mA and/or kV according to patient size. COMPARISON: None. FINDINGS: Image quality: Diagnostic. Lower Chest: No significant findings. ABDOMEN: Liver: Mild diffuse hepatic steatosis. Hepatomegaly measuring 21.1 cm. Subtle surface nodularity suggests early cirrhotic change. Gallbladder: No radiopaque gallstones or wall thickening. Biliary ducts: No biliary dilation. Pancreas: No ductal dilation. Spleen: Size is within normal limits. Adrenal Glands: No adrenal nodules. Kidneys and Ureters: No hydronephrosis. No solid mass. No complex renal cystic lesion which requires follow up. Stomach and Bowel: Normal colonic caliber, without significant wall thickening. Scattered diverticulosis without evidence of diverticulitis. Peritoneum: No abnormal intraperitoneal fluid. No free air. Ventral Wall: No significant ventral hernia. Abdominal Nodes: No retroperitoneal or mesenteric adenopathy by size criteria. Vessels: Aorta and inferior vena cava are normal in size. PELVIS: Pelvic Organs: IUD. Bladder: No bladder wall thickening, accounting for underdistention. Pelvic Nodes: No enlarged lymph nodes. Miscellaneous: No inguinal hernias are seen. Bones: No aggressive osseous abnormality. IMPRESSION: 1. Hepatomegaly, cirrhotic change. 2. Scattered diverticulosis. 3. No renal stones or ureteral stones or hydronephrosis. 4. No acute abdominal process identified. Dictated by: Alli Lowe M.D. on 08/10/2023 at 11:53 MDM Narrative Medical decision making narrative: Patient 38-year-old female with history of MTHFR presenting today with left-sided flank pain. She does report some UTI like symptoms she has been on azo for couple of days. Concern for kidney stone or back pain. Blood work reviewed WBC 10.6, creatinine 0.5, urinalysis positive for bacteria Imaging: No evidence of diverticulitis or ureteral stone, does show hepatomegaly and cirrhosis At this time patient does not have evidence of sepsis she probably does have some pyelonephritis. 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 Pain is much better after Toradol. She is also given Zofran and Tylenol in the ED Discharge Plan Departure Patient Disposition: Home Clinical Impression: UTI (urinary tract infection) Instructions: DI for Urinary Tract Infection (UTI) Activity Restrictions/Additional Instructions: *You have been diagnosed with UTI *What to do: At this time no evidence of kidney stone or kidney abnormality. Symptoms are probably associated with bladder infection *Continue to take medications as directed Keflex 500 mg twice a day for 7 days Motrin 600 mg every 6 hours *Follow up with your primary care provider in 2-3 days or call [phone] *Return to ER if you should have increasing pain fever nausea vomiting or any new, worsening or concerning symptoms Prescriptions: New cephalexin 500 mg capsule 500 mg PO BID 7 Days Qty: 14 0RF No Action benzonatate 100 mg capsule 100 mg PO BID PRN (Reason: cough) Qty: 20 0RF (DME) Aerochamber MV Spacer See Rx Instructions .ROUTE .MEDSUPPLY Qty: 1 0RF Rx Instructions: As directed albuterol sulfate 90 mcg/actuation HFA aerosol inhaler 2 puff inhalation Q6H PRN (Reason: shortness of breath or wheezing) Qty: 6.7 0RF fluticasone propionate [Flonase Allergy Relief] 50 mcg/actuation spray,suspension 1 spray intranasal Q12H Qty: 16 0RF Rx Instructions: administer into each nostril VIT #49/IRON FUM/FA (MINI TABLET) 1 PO QDAY Qty: 0 amoxicillin 500 mg capsule 500 mg PO BID Qty: 20 0RF Referrals: Shannan Vigil MD [Primary Care Provider] - Stand Alone Forms: Patient Portal/API
[2023-08-10 09:54] LABS: Pregnancy Test Urine Negative (Negative)
[2023-08-10 09:59] LABS: Appearance Urine UA CLOUDY
--- NOTE | 2023-08-10 09:59 | DI.CT.S_ITS ---
PROCEDURE: CT ABDOMEN PELVIS W CON INDICATIONS: left flank pain TECHNIQUE: After the administration of intravenous contrast, axial sections acquired from the lung bases to the pubic symphysis. Coronal and sagittal reformats were performed. For radiation dose reduction, the following was used: automated exposure control, adjustment of mA and/or kV according to patient size. COMPARISON: None. FINDINGS: Image quality: Diagnostic. Lower Chest: No significant findings. ABDOMEN: Liver: Mild diffuse hepatic steatosis. Hepatomegaly measuring 21.1 cm. Subtle surface nodularity suggests early cirrhotic change. Gallbladder: No radiopaque gallstones or wall thickening. Biliary ducts: No biliary dilation. Pancreas: No ductal dilation. Spleen: Size is within normal limits. Adrenal Glands: No adrenal nodules. Kidneys and Ureters: No hydronephrosis. No solid mass. No complex renal cystic lesion which requires follow up. Stomach and Bowel: Normal colonic caliber, without significant wall thickening. Scattered diverticulosis without evidence of diverticulitis. Peritoneum: No abnormal intraperitoneal fluid. No free air. Ventral Wall: No significant ventral hernia. Abdominal Nodes: No retroperitoneal or mesenteric adenopathy by size criteria. Vessels: Aorta and inferior vena cava are normal in size. PELVIS: Pelvic Organs: IUD. Bladder: No bladder wall thickening, accounting for underdistention. Pelvic Nodes: No enlarged lymph nodes. Miscellaneous: No inguinal hernias are seen. Bones: No aggressive osseous abnormality. IMPRESSION: 1. Hepatomegaly, cirrhotic change. 2. Scattered diverticulosis. 3. No renal stones or ureteral stones or hydronephrosis. 4. No acute abdominal process identified. Dictated by: Alli Lowe M.D. on 08/10/2023 at 11:53 Approved by: Alli Lowe M.D. on 08/10/2023 at 11:56
[2023-08-10 10:01] LABS: Color Urine UA Orange
[2023-08-10 10:02] LABS: Bacteria Urine Moderate (10-30); Culture Indicated Urine Specimen Cultured; Ictotest Urine Positive (Negative); RBC Urine 1-5/HPF (0-5/HPF); Squamous Epithelial Cell Urine None Seen (0-5/HPF); Urine Volume 10mL (spun); WBC Urine 10-30/HPF (0-5/HPF)
[2023-08-10] MEDS: ACETAMINOPHEN 325 MG TABLET 975 MG PO (12:40)
== END 2023-08-10 12:59 | disposition home or self-care (01) ==
PROVIDERS: Emergency Provider Emergency Medicine; PCP Family Medicine
DX: N39.0 Urinary tract infection, site not specified (principal)
CPT/HCPCS: 74177; 80053; 81001; 81025; 83690; 85025; 87077; 87086; 87186; 96374; 96375; 99284; J1885; J2405; Q9967

== ENCOUNTER 2023-11-16 01:39 | Emergency (ER) | payer OTHER, MEDICAID, SELFPAY ==
[2023-11-16 01:52] VITALS: BP 162/110; PULSE 96; RESP 16; TEMP 36.4; O2SAT 98; BMI 32.1
--- NOTE | 2023-11-16 01:55 | ED.GENADULT ---
HPI - General Adult General Chief complaint: Nasal Problem Stated complaint: Nose Bleed Time Seen by Provider: 11/16/23 01:45 Source: patient Mode of arrival: Ambulatory Limitations: no limitations History of Present Illness HPI narrative: Patient is a 38-year-old female who is here for evaluation of a nosebleed. Patient states that she has been dealing with a chronic sinus infection for the past several weeks. Yesterday she did a nasal lavage and since that time has had off and on bleeding specifically from the left nares. No specific trauma. She was not on blood thinners. Does occasionally have blood coming from the right nares as well. Related Data Home Medications Medication Instructions Recorded Confirmed VIT #49/IRON FUM/FA (MINI 1 PO QDAY ##0 06/06/16 TABLET) Previous Rx's Medication Instructions Recorded albuterol sulfate 90 mcg/actuation 2 puff inhalation Q6H PRN 03/30/22 aerosol inhaler shortness of breath or wheezing #6.7 grams benzonatate 100 mg capsule 100 mg PO BID PRN cough #20 caps 03/30/22 inhalational spacing device #1 ea 03/30/22 (Aerochamber MV spacer) amoxicillin 500 mg capsule 500 mg PO BID #20 caps 04/01/22 fluticasone propionate 50 1 spray intranasal Q12H #16 grams 01/05/23 mcg/actuation nasal spray,suspension (Flonase Allergy Relief) Allergies Allergy/AdvReac Type Severity Reaction Status Date / Time No Known Drug Allergies Allergy Verified 08/10/23 08:39 Review of Systems ENT Ears, Nose, Mouth, and Throat: Reports system reviewed and no additional complaints, except as documented Patient History Medical History TIA (transient ischemic attack) MTHFR gene mutation Social History Smoking Status: Current every day smoker Smoking Status: Current every day smoker tobacco type: cigarettes alcohol intake frequency: 3 or more drinks per day Alcohol type: hard liquor Exam Initial Vital Signs Initial Vital Signs: Vital Signs Temperature 97.6 F 11/16/23 01:52 Pulse Rate 96 H 11/16/23 01:52 Respiratory Rate 16 11/16/23 01:52 Blood Pressure 162/110 H 11/16/23 01:52 Pulse Oximetry 98 11/16/23 01:52 Oxygen Delivery Method Room Air 11/16/23 01:52 HENMT Nose: other (Large clot left nares) Skin General: no rashes or lesions noted Neuro General: patient alert, patient awake and moves all extremities Extrem General: normal to inspection and capillary refill normal Procedures Epistaxis Control Time Out Performed: Yes Nostril: left Device Inserted: hemostatic balloon Device Size: 45 Patient Tolerated Procedure: well Course Orders Ordered: Discontinued Medications Tranexamic Acid (Tranexamic Acid 1,000 Mg Vial) 1,000 mg TOP NOW ONE Stop: 11/16/23 02:34 Vital Signs Vital signs: Vital Signs - 8 hr 11/16/23 01:52 Temperature 97.6 F Pulse Rate 96 H Respiratory Rate 16 Blood Pressure 162/110 H Pulse Oximetry 98 Oxygen Delivery Method Room Air Medical Decision Making MDM Narrative Medical decision making narrative: Patient's bleeding was relatively well controlled here in the ER however she did have a large clot in the left nares. Patient was very concerned about rebleeding at home. Because of this a 4.5 rhino rocket soaked in TXA was placed in the left nares. Patient tolerated the procedure well. Will discharge patient home with instructions to contact ENT for a follow-up. She was given return precautions. Discharge Plan Departure Patient Disposition: Home Clinical Impression: Epistaxis Instructions: DI for Nosebleed Activity Restrictions/Additional Instructions: Continue to take any medications as directed. Recommend that you contact the Ear Nose and Throat provider at the number provided below for a follow-up most likely the beginning of next week. Return to the emergency department for new worsening symptoms. Prescriptions: No Action benzonatate 100 mg capsule 100 mg PO BID PRN (Reason: cough) Qty: 20 0RF (DME) Aerochamber MV Spacer See Rx Instructions .ROUTE .MEDSUPPLY Qty: 1 0RF Rx Instructions: As directed albuterol sulfate 90 mcg/actuation HFA aerosol inhaler 2 puff inhalation Q6H PRN (Reason: shortness of breath or wheezing) Qty: 6.7 0RF fluticasone propionate [Flonase Allergy Relief] 50 mcg/actuation spray,suspension 1 spray intranasal Q12H Qty: 16 0RF Rx Instructions: administer into each nostril VIT #49/IRON FUM/FA (MINI TABLET) 1 PO QDAY Qty: 0 amoxicillin 500 mg capsule 500 mg PO BID Qty: 20 0RF Referrals: Shannan Vigil MD [Primary Care Provider] - Jb Mathis MD [Physician] - Stand Alone Forms: Patient Portal/API
[2023-11-16] MEDS: TRANEXAMIC ACID 1,000 MG VIAL 1000 MG TOP (02:40)
[2023-11-16 03:29] VITALS: BP 143/79; PULSE 103; RESP 16; O2SAT 97
== END 2023-11-16 03:38 | disposition home or self-care (01) ==
PROVIDERS: Emergency Provider Emergency Medicine; PCP Family Medicine
DX: R04.0 Epistaxis (principal)
CPT/HCPCS: 30903; 99282